=== PATIENT | male | born 1950 | race Caucasian/White ===

== ENCOUNTER 2020-12-20 05:41 | Inpatient (IN) ==
--- NOTE | 2020-11-28 14:35 | PAT Medication Instructions ---
Medication Instructions Date of Service November 28, 2020 Home Medications cholecalciferol (vitamin D3) 25 mcg (1,000 unit) capsule 2,000 mcg PO QAM lisinopril 5 mg tablet 5 mg PO QAM alfuzosin 10 mg PO HS DO NOT take the morning of surgery cholecalciferol (vitamin D3) 25 mcg (1,000 unit) capsule 2,000 mcg PO QAM lisinopril 5 mg tablet 5 mg PO QAM Take evening before surgery alfuzosin 10 mg PO HS Other Notes If you have any questions please call us at [phone] or [phone] or [phone] or [phone]
--- NOTE | 2020-11-29 11:26 | Anesthesiology Consultation ---
Date of Service November 29, 2020 Assessment & Plan (1) Encounter for pre-operative examination: Chart Review Chart Review: Acceptable Risk for Surgery (pending preop Covid testing results ) and Patient seen in Pre Admission Testing Per PAT appt on 11/29/20, pt resides in [facility]. Wears mask, uses good hand hygiene and socially distances. Travels to [facility] for medical appts. No known Covid positive contacts or Covid related symptoms. No known Covid infection in the past 90 days. Preop Covid testing scheduled 12/16/20= will await results. Educated on importance of self quarantining, social distancing and wear ing mask in public both for the patient after Covid testing done. Pt fully vaccinated. Teaching & Discussion Pre-Anesthesia Teaching/Discussion Notes: Instructed NPO after midnight before surgery,except medications with 15 cc of water. Medication instructions provided according to the [facility] guidelines. History Surgery Operation Date: 12/20/20 07:30 Proposed Procedures p Robotic Laparoscopic Assisted Radical Retropubic Prostatectomy Possible Open Possible Pelvic Lymph Node Dissection Possible Suprapubic Tube Placement - Dar Patel MD Height/Weight Height: 5 ft 10 in Weight: 91.9 kg Allergies Allergy/AdvReac Type Severity Reaction Status Date / Time No Known Allergies Allergy Verified 11/28/20 11:53 Medications Home Medications Medication Instructions Recorded Confirmed Last Taken cholecalciferol (vitamin D3) 25 2,000 mcg PO QAM 05/24/20 11/28/20 Unknown mcg (1,000 unit) capsule lisinopril 5 mg tablet 5 mg PO QAM 05/24/20 11/28/20 Unknown alfuzosin 10 mg PO HS 11/28/20 11/28/20 Unknown Past Medical History Medical History Benign localized hyperplasia of prostate with urinary obstruction GERD (gastroesophageal reflux disease) Controlled and stable Gout HX No current issues Hypertension Impotence, organic Prostate cancer (03/25/20) Dx'ed 2019- was under observation until now Exercise / Class Metabolic Activity II 4-5 Yardwork/Stairs/Walk up hill (one flight of stairs - no chest pain or SOB ) Past Family History Family History Mother , 78yo Arthritis Father , 81yo Dementia Brother No problems noted. Brother No problems noted. Brother Retinal disorder Sister No problems noted. Sister No problems noted. Son No problems noted. Daughter No problems noted. Daughter No problems noted. Past Surgical History Surgical History H/O left inguinal hernia repair History of colonoscopy Hx of hemorrhoidectomy Hx of prostate biopsy Past Anesthesia History No Hx of Anesthesia Complications and No Family Hx of Anesthesia Complications History of PONV No Hx of PONV and No Hx of Motion Sickness Social History Smoking Status: Former smoker Smoking cigarettes per day: 1-2 PPD x 30yrs;Quit 1998 Do You Dip or Chew Tobacco: No Smoking End Date: QUIT 20" YRS AGO Hx Alcohol Use: Yes Alcohol type: beer alcohol intake frequency: 0-2 drinks per day (2 beers/day ) Hx Substance Use: No Review of Systems Patient denies chest pain, shortness of breath, dyspnea on exertion, cough, wheezing, palpitations. No hx of seizures, stroke, [place], apnea/snoring. No hx of blood clots or blood transfusions Physical Exam Vital Signs VITALS BP 126/75 P 73 TEMP 98.0 SP02 95% RESP 16 Constitutional no acute distress ENMT Mouth: no TMJ clicking Thyromental Distance: > or= 3.5 Finger Breadths (3.5) Mallampati Class: I Missing molars Neck + short neck; neck extension not limited Respiratory normal respiratory effort; no respiratory distress Auscultation: lungs clear to auscultation bilaterally; no wheezes Cardiovascular Rate/Rhythm: regular rate and regular rhythm Heart Sounds: no murmur Vessels: no carotid bruit Musculoskeletal Spine: no pain with cervical ROM Extremities: extremities normal to inspection Psychiatric Orientation: alert Lab Results Anesthesia Preop Results Results Anesthesia Widget: WBC 4.99 K/uL (4.8-10.8) 11/29/20 Hgb 15.0 g/dL (14.0-18.0) 11/29/20 Hct 43.3 % (42-52) 11/29/20 Plt 188 K/uL (130-400) 11/29/20 Na 138 mmol/L (136-145) 11/29/20 K 4.3 mmol/L (3.5-5.1) 11/29/20 Cl 106 mmol/L (98-107) 11/29/20 CO2 25 mmol/L (21-32) 11/29/20 BUN 19 mg/dl (7-18) H 11/29/20 Creat 1.29 mg/dl (0.6-1.4) 11/29/20 Glucose Level 100 mg/dl (70-99) H 11/29/20 Urine Color Yellow 11/29/20 Urine Appearance Clear (Clear) 11/29/20 Urine pH 5.0 (4.5-7.5) 11/29/20 Urine Specific [place] 1.011 (1.000-1.030) 11/29/20 Urine Protein Negative (Negative) 11/29/20 Urine Glucose (UA) Negative (Negative) 11/29/20 Urine Ketones Negative (Negative) 11/29/20 Urine Blood Negative (Negative) 11/29/20 Urine Nitrite Negative (Negative) 11/29/20 Urine Bilirubin Negative (Negative) 11/29/20 Urine Urobilinogen Negative (Negative) 11/29/20 Urine Leukocyte Esterase Negative (Negative) 11/29/20 Blood Type O Negative 11/29/20 Antibody Screen NEGATIVE 11/29/20 Testing Electrocardiogram Date: 11/29/20 Findings: + NSR @ (72bpm) Incomplete RBBB. Chest X-Ray Date: 11/29/20 Findings: + NAD
[2020-12-20] MEDS ORDERED: HEPARIN SOD 5,000 UNIT/0.5 ML VIAL IV SCH (06:00)
[2020-12-20] MEDS ORDERED: HEPARIN SOD 5,000 UNIT/0.5 ML VIAL SQ SCH (06:00)
[2020-12-20] MEDS ORDERED: LR 15ML/HR IV SCH (06:00)
[2020-12-20] MEDS ORDERED: MIDAZOLAM HCL 1 MG/ML 2ML VIAL ONE (06:58)
[2020-12-20] MEDS ORDERED: fentaNYL citrate 100 MCG/2 ML VIAL ONE (06:58)
[2020-12-20] MEDS ORDERED: fentaNYL citrate 100 MCG/2 ML VIAL IV PRN (07:06)
[2020-12-20] MEDS ORDERED: ePHEDrine sulfate 50 MG/ML AMP IV PRN (07:06)
[2020-12-20] MEDS ORDERED: HYDROmorphone INJ 1 MG/ML SYRINGE IV PRN (07:06)
[2020-12-20] MEDS ORDERED: ATROPINE SULFATE 0.1 MG/ML 10ML SYR IV PRN (07:06)
[2020-12-20] MEDS ORDERED: PHENYLEPHRINE 100MCG/ML 5ML SYR IV PRN (07:06)
[2020-12-20] MEDS ORDERED: ONDANSETRON INJ 2 MG/ML 2 ML VIAL IV PRN ×2 (07:06→11:56)
[2020-12-20] MEDS ORDERED: MEPERIDINE HCL 25 MG/ML CARP/VIAL IV PRN (07:06)
[2020-12-20] MEDS ORDERED: LABETALOL HCL IV 5 MG/ML 20ML IV PRN (07:06)
--- NOTE | 2020-12-20 07:20 | History & Physical Bridge Note ---
Date of Service December 20, 2020 History & Physical Bridge Note I have examined the patient, reviewed the History & Physical and in the interval since the performance of the History & Physical I have noted the following changes of clinical significance: no changes noted
[2020-12-20] MEDS ORDERED: BUPIVACAINE 0.5 % 5 MG/1 ML MPF 30ML VIAL ONE (07:25)
[2020-12-20] MEDS ORDERED: BELLADONNA/OPIUM SUPP 60 MG SUPP PR ONE (07:49)
[2020-12-20] MEDS ORDERED: HYDROmorphone INJ 2 MG/ML SYR/VIAL ONE (08:11)
[2020-12-20] MEDS ORDERED: ROCURONIUM BROMIDE 10 MG/ML 5 ML VIAL IV ONE ×4 (08:16→09:14)
[2020-12-20] MEDS ORDERED: LIDOCAINE 2% 2 ML VIAL/AMP(20MG/ML) INFIL ONE (08:16)
[2020-12-20] MEDS ORDERED: GLYCOPYRROLATE 0.2 MG/ML VIAL ONE (08:16)
[2020-12-20] MEDS ORDERED: ePHEDrine sulfate 50 MG/ML SYR ONE (08:16)
[2020-12-20] MEDS ORDERED: DEXAMETHASONE SOD INJ 4 MG/ML VIAL ONE (08:16)
[2020-12-20] MEDS ORDERED: PROPOFOL IV EMULSION 10 MG/ML 20 ML VIAL IV ONE (08:16)
[2020-12-20] MEDS ORDERED: ONDANSETRON INJ 2 MG/ML 2 ML VIAL ONE (08:16)
[2020-12-20] MEDS ORDERED: LARYING-O-JET KIT (LTA) ONE (08:16)
[2020-12-20] MEDS ORDERED: NEOSTIGMINE METHYLSULFATE 1 MG/ML 10ML VIAL ONE (08:16)
[2020-12-20] MEDS ORDERED: PHENYLEPHRINE 100MCG/ML 5ML SYR ONE (08:16)
[2020-12-20] MEDS ORDERED: SURGICEL ABSORB HEMOSTAT 2IN X 14IN TOP ONE (08:25)
[2020-12-20] MEDS ORDERED: FLOSEAL HEMOSTATIC MATRIX 10ML TOP ONE (08:25)
--- NOTE | 2020-12-20 10:55 | Operative Report ---
[facility] Post Operative Report Pre & Post Diagnosis Operation Date: 12/20/20 07:30 Pre-Op Diagnosis: Prostate Cancer Post-Op Diagnosis: Prostate Cancer I identified the patient and participated in the time-out.: Yes Procedure Operation Date: 12/20/20 07:30 Actual Procedures p Robotic Laparoscopic Assisted Radical Retropubic Prostatectomy(Not Applicable) - Dar Patel MD Surgeon Kev Patel MD Hand Folder Alicia Erwin Estimated Blood Loss 100 Findings Consistent with Post-Op Diagnosis Specimens 1. Periprostatic fat 2. Prostate and seminal vesicles Description of Procedure The patient was identified in the preoperative holding area, appropriate informed consents were reviewed and completed, and he was transported to the operating suite. Subcutaneous heparin was administered in the pre-operative holding area. Upon arrival in the operating suite, he received appropriate antibiotics and general anesthesia. He was positioned in dorsal lithotomy, a B&O suppository was inserted after digital rectal exam, and he was prepped and draped in standard fashion. A Briones catheter was inserted in the sterile field. A Veress needle was passed per umbilicus with uniform insufflation of the abdomen to 15mmHg. He was placed in steep Trendelenburg position. A periumbilical incision was then made to ac commodate a 12mm Visiport with 10mm 0degree laparoscope. Inspection of the abdomen was carried out, and there was no evidence of traumatic entry or injury secondary to the Veress needle. After confirming a clear anterior abdominal wall, ports were subsequently placed in standard robotic prostatectomy fashion without incident. To begin the robotic portion of the case, the left lateral aspect of the sigmoid was mobilized off of the left pelvic side wall to allow the pouch of Oscar to be appropriately visualized. He has had a prior left inguinal hernia repair, there was some scarring, but required minimal lysis of adhesions in this area. I then made an incision in the pouch of Oscar, overlying the seminal vesicles. Both SVs as well as the ampullae of the vasa were entirely dissected, with the vasa transected 3cm from the prostate. The medial umbilical ligaments were then controlled with bipolar electrocautery just inferior to the umbilicus. Following cauterization, they were divided utilizing monopolar cautery. A peritoneal incision was carried from this location to the medial aspect of the internal inguinal rings bilaterally with care to avoid opening through the ring. This incision was concluded when the vas deferens was reached. Dissection of the bladder and prostate off of the posterior aspect of the pubic arch was completed allowing full visualization of the prostate. The fat overlying the prostate was removed en bloc and passed off the table as a specimen labeled "periprostatic fat". The endopelvic fascia was cleared during this portion of the procedure, and subsequently opened - first on the right and then the left. The incision through the endopelvic fascia began near the prostate-bladder junction and was carried to the apex with extreme care to preserve all lateral levator musculature as well as the periurethral musculature and sphincter complex. I additionally preserved the puboprostatic ligaments. I then controlled the DVC with a 3-0 V-lock suture in overlapping/figure of 8 fashion. My attention then returned to the prostate, with identification of the bladder neck aided by gentle traction on the Briones catheter and lateral to medial pressure at the presumed level of the bladder neck with the robotic instruments. An anterior cystotomy was made, the Briones balloon deflated and the catheter guided through the incision to allow anterior retraction. I attempted to preserve maximal bladder neck musculature as I circumferentially dissected around the bladder neck. After incision through the posterior aspect of the mucosa, the dissection was carried through detrusor muscle until the bilateral ampullae of the vasa were identified. The previously dissected vasa and SVs were brought through the incision and used to elevated the prostate anteriorly. A posterior plane behind the prostate was then developed - splitting Denonvilliers's fascia. This dissection was carried as far as possible towards the apex as well as far as possible laterally. An incision in the lateral prostatic fascia was then made bilaterally to facilitate control of the vascular pedicles and preservation of the nerve bundles. Vasculature running along the posterior/lateral aspect of the prostate was preserved as well as the tissue containing the nerves. The pedicles were then controlled with a series of Weck clips. The apical attachments of the prostate were remaining at that stage. The DVC was divided after control with bipolar cautery over the prostate. Continuous inspection from anterior and lateral views allowed me to closely follow the apical contour of the prostate and maximally preserve urethral length and tissue. The prostate was entirely freed at that point, and collected in an EndoCatch bag before being moved out of the field of vision. Hemostasis was confirmed and anastomosis of the bladder and urethra was completed utilizing a double armed V- Lock stitch. A new Briones catheter was inserted and the anastomosis tested with irrigation. There was no evidence of leak. The robot was undocked, the specimen extracted through expansion of the melvi- umbilical camera port. The fascia was closed with a series of 0-ethibond figure of 8 stitches. The right lead assistant manager port was closed in two layers - with a figure of 8 0-Vicryl to reapproximate the fascia followed by 4-0 Monocryl to close the skin. Monocryl was used to close all other skin incisions. All wounds were dressed with Dermabond. The case was concluded and the patient taken to the PACU in stable condition. Alicia Erwin assisted from incision to closure. I attest to the content of the Intraoperative Record and any orders documented therein. Any exceptions are noted below.
[2020-12-20 11:27] LABS: Eosinophils # (auto) 0.03 K/uL (0-0.5); Eosinophils % (auto) 0.4 %; Hematocrit (blood only) 46.4 % (42-52); Hemoglobin 15.9 g/dL (14.0-18.0); Immature Granulocytes # (auto) 0.01 K/uL (0.00-0.02); Immature Granulocytes % (auto) 0.1 %; Lymphocytes # (auto) 0.99 K/uL (1.2-3.4); Lymphocytes % (auto) 12.2 %; Mean Corpuscular Hemoglobin 33.4 pg (25-34); Mean Corpuscular Volume 97.5 fL (80-100); Mean Platelet Volume 9.7 fL (7.4-10.4); Monocytes # (auto) 0.09 K/uL (0.11-0.59); Monocytes % (auto) 1.1 %; Neutrophils # (auto) 6.99 K/uL (1.4-6.5); Neutrophils % (auto) 86.2 %; Platelet Count 192 K/uL (130-400); RDW Standard Deviation 46.5 fL (36.4-46.3); Red Blood Count 4.76 M/uL (4.7-6.1); White Blood Count 8.11 K/uL (4.8-10.8)
--- NOTE | 2020-12-20 11:30 | Anesthesiology Progress Note ---
Date of Service December 20, 2020 Anesthesia Post Procedure Vital Signs Vital Signs: Temp Pulse Pulse Resp BP BP Pulse Ox 12/20/20 11:20 36.6 C 83 14 165/92 H 95 12/20/20 11:10 80 12 159/92 H 95 12/20/20 11:00 92 H 13 173/97 H 96 12/20/20 10:50 83 13 165/94 H 95 12/20/20 10:41 36.6 C 95 H 12 165/94 H 95 12/20/20 06:17 36.8 C 90 20 151/95 H 95 Transfer of Care Handoff Completed per policy Notes Mental Status: alert / awake / arousable Patient Amnestic to Procedure: Yes Nausea / Vomiting: adequately controlled Pain: adequately controlled Airway Patency, RR, SpO2: stable & adequate BP & HR: stable & adequate Hydration State: stable & adequate Anesthetic Complications: no major complications apparent and Pt Satisfied with anesthetic care
[2020-12-20 11:36] LABS: Mean Corpuscular Hgb Conc 34.3 g/dL (32-36)
[2020-12-20 11:42] LABS: BUN Creatinine Ratio 13.5 (10-20); Calcium 9.3 mg/dl (8.5-10.1); Creatinine Clr Calc Pharmacy 48.3 ml/min; Est GFR (African American) 55.2 ml/min; Est GFR (Non-African American) 47.7 ml/min; Potassium 4.3 mmol/L (3.5-5.1)
[2020-12-20] MEDS ORDERED: MoRPHine SULFATE 4 MG/ML 1 ML CARP\\VIAL IV PRN (11:56)
[2020-12-20] MEDS ORDERED: oxyCODONE HCL IR 5 MG TAB (IMMEDIATE RELEASE) PO PRN ×2 (11:56)
[2020-12-20] MEDS ORDERED: MoRPHine SULFATE 2 MG/ML CARP IV PRN (11:56)
[2020-12-20] MEDS: LACTATED RINGER'S 1,000 ML IV SCH ×2 (13:04→22:34)
[2020-12-20] MEDS: ceFAZolin 2000MG 2,000 MG/15 ML SYR IV SCH ×2 (15:50→22:34)
[2020-12-20] MEDS: HEPARIN SOD 5,000 UNIT/0.5 ML VIAL SQ SCH (20:22)
[2020-12-20] MEDS: ACETAMINOPHEN 325 MG TAB PO PRN (20:33)
[2020-12-21] MEDS: ACETAMINOPHEN 325 MG TAB PO PRN (04:22)
[2020-12-21 06:58] LABS: Hematocrit (blood only) 43.9 % (42-52); Hemoglobin 14.9 g/dL (14.0-18.0); Immature Granulocytes # (auto) 0.01 K/uL (0.00-0.02); Immature Granulocytes % (auto) 0.1 %; Lymphocytes # (auto) 1.47 K/uL (1.2-3.4); Lymphocytes % (auto) 16.8 %; Mean Corpuscular Hemoglobin 33.5 pg (25-34); Mean Corpuscular Hgb Conc 33.9 g/dL (32-36); Mean Corpuscular Volume 98.7 fL (80-100); Mean Platelet Volume 9.8 fL (7.4-10.4); Monocytes # (auto) 0.82 K/uL (0.11-0.59); Monocytes % (auto) 9.4 %; Neutrophils # (auto) 6.44 K/uL (1.4-6.5); Neutrophils % (auto) 73.7 %; Platelet Count 202 K/uL (130-400); RDW Standard Deviation 46.9 fL (36.4-46.3); Red Blood Count 4.45 M/uL (4.7-6.1); White Blood Count 8.74 K/uL (4.8-10.8)
[2020-12-21 07:25] LABS: BUN Creatinine Ratio 10.8 (10-20); Calcium 8.9 mg/dl (8.5-10.1); Creatinine Clr Calc Pharmacy 53.4 ml/min; Est GFR (African American) 62.3 ml/min; Est GFR (Non-African American) 53.8 ml/min; Potassium 4.1 mmol/L (3.5-5.1)
--- NOTE | 2020-12-21 08:00 | Urology Progress Note ---
Date of Service December 21, 2020 Assessment & Plan (1) Prostate cancer: Postop day #1 status post robotic prostatectomy Recovery appears to very much be on pace Continue ambulation Advance diet as tolerated Hep-Lock IV fluid Plan for discharge home later today Admission and Anticipated Discharge Date Admission Date: December 20, 2020 Subjective No issues overnight Denies any significant pain Was out of bed and ambulatory within the room but not the hallway No nausea or vomiting Tolerated clears Urine cleared up appropriately Good urine output overnight Physical Exam Physical Exam: Incisions appropriate Urine clear Results & Data ([facility]) Vital Signs (Past 12 Hours) Vital Signs Temp Pulse Pulse Resp BP BP Pulse Ox 12/21/20 07:26 37 C 73 20 134/73 95 12/21/20 03:00 36.9 C 81 18 148/77 H 94 12/20/20 23:12 37.1 C 87 18 132/74 94 PG Care Time/CCT Total # of Minutes Spent Total Time Spent with Patient: Total time spent is greater than 50% in coordination of care (as documented) at patient's floor/unit and/or counseling patient: Coding Level of Care Code 21952 Subseq Hosp Care Lvl 2 Diagnoses Prostate cancer C61
[2020-12-21] MEDS: HEPARIN SOD 5,000 UNIT/0.5 ML VIAL SQ SCH (08:41)
[2020-12-21] MEDS ORDERED: lisinopril 5 MG TAB PO SCH (09:00)
[2020-12-21] MEDS ORDERED: CHOLECALCIFEROL 1,000 UNITS 25 MCG TAB PO SCH (09:00)
--- NOTE | 2020-12-21 09:00 | Discharge Summary ---
Date of Service December 21, 2020 Admission HPI Per Admitting Provider See H&P Admission Exam Per Admitting Provider See H&P Principal Diagnosis Prostate Cancer Discharge Exam Constitutional well developed and well nourished; no acute distress and not ill appearing Respiratory normal respiratory effort and able to speak in complete sentences; no respiratory distress and no audible wheezes Gastrointestinal (Abdomen) Inspection/Auscultation: abdomen normal to inspection; abdomen not distended Percussion/Palpation: abdomen soft; no guarding Incisions appropriate. Psychiatric Orientation: alert, oriented x 3 and cooperative Affect: euthymic affect Genitourinary no CVA tenderness Mack catheter intact draining clear yellow urine. Discharge Data Allergies Allergy/AdvReac Type Severity Reaction Status Date / Time No Known Allergies Allergy Verified 12/20/20 05:48 Procedures Performed Operation Date: 12/20/20 07:30 Actual Procedures p Robotic Laparoscopic Assisted Radical Retropubic Prostatectomy(Not Applicable) - Dar Patel MD Hospital Course (1) Prostate cancer: Patient admitted status post robotic laparoscopic-assisted radical retropubic prostatectomy on 12/20/[address] Patel. No complications post procedure. He was seen POD#1, feeling well, clinically progressing as expected. Vital signs and post-op labs appropriate and as expected. Elevated creatinine post procedure expected postoperatively secondary to urologic surgical intervention, returned to normal POD#1. Pain controlled, tolerating advanced diet, ambulating without dizziness. Discharged home in stable condition POD # 1, home with mack catheter. Total Time Total Time Spent Total Time Spent (In Minutes): 10 Discharge Plan Discharge Items Patient Disposition: Home - Self-Care Reason For Visit: Prostate Cancer Discharge Diagnosis: Prostate Cancer Condition on Discharge: Good Activity: Per Instructions section Lifting: No more than 25 pounds Bathing Comment: No tub baths, okay to shower tomorrow Sexual Activity: Wait until after follow-up appointment Exercise/Sports: Wait until after follow-up appointment Driving/Machine Use: Do not drive while taking narcotic pain medication Non-emergency contact: Surgeon and Urologist Call non-emergency contact if: your pain is not controlled, your pain is concerning for you, your temperature is above 101, your wound has increased redness, your wound has increased drainage and your wound pain has increased Follow-up/Referrals: Dar Patel MD [Physician] - 01/04/21 2:45 pm Erich Gautam M.D. [Primary Care Provider] - [facility],Nurse [FAKE FOR SCHEDULES] - 12/26/20 10:00 am Diet: Regular Addtl Attending Provider Instructions: Please take all medications as prescribed and keep all follow-ups as scheduled. Please call our office at [phone] with any questions, concerns or need to reschedule appointments for any reason. We are happy to assist you We have sent an antibiotic to your pharmacy of choice. Please begin antibiotic as prescribed the day BEFORE your scheduled voiding trial at [facility]. Please continue antibiotic every 12 hours through the day AFTER your voiding trial. Activity: We recommend having someone with you for the first few days after surgery to help care for you. For the first 2 weeks after surgery, we would like you to get up and walk around your house. However, we recommend limit physical activity that would increase your heart rate. This will allow your body to rest and heal. Take naps if you feel tired. Don't lift anything heavier than 10 pounds, mow the law or ride a bicycle until your follow-up appointment. Please avoid long car rides. Home Care: Unless directed otherwise, drink 6 to 8 glasses of water a day (enough to keep your urine light colored). This will also help keep a healthy flow of urine. We recommend using a stool softener for the first two weeks to avoid constipation. Mack Catheter or Suprapubic Catheter care: Keep the catheter well secured with either a leg back or leg strap with large bag. Empty your bag when it's about half full. You may notice some blood in the bag. This is normal after surgery and while the catheter is in place. Use mild soap (such as Dove or Dial) and water to wash the catheter and the head of your penis daily, or more frequently if needed. Return to your normal diet, we encourage good protein intake to promote healing. You may shower as normal. Please avoid tub baths or soaking until catheter removed and incisions well healed. Wearing sweat pants while you have the catheter is recommended, they will be more comfortable. Follow-up Your follow up appointments for having your catheter removed, and follow up with your physician should already be scheduled. If you have any questions regarding this, please contact our office. Your final pathology report will be discussed at your physician follow-up appointment. Call [facility] at [phone] right away if you have any of the following: Chest pain or trouble breathing (call 911 or go to the hospital) Fever of 101F or higher, uncontrolled vomiting Heavy bleeding, clots, or bright red blood from the catheter Catheter that falls out or stops draining Foul-smelling discharge from your catheter Redness, swelling, warmth, or increased pain at your incision site Drainage, pus, or bleeding from your incision Pending Studies at Discharge: Yes Studies:: pathology Stand-Alone Forms: [facility], Smoking Cessation Medications and DC Order Prescriptions: New ciprofloxacin HCl 500 mg tablet 500 mg PO BID 3 Days Qty: 6 RF: 0 docusate sodium [Colace] 100 mg capsule 100 mg PO BID Qty: 60 RF: 0 oxycodone-acetaminophen [Percocet] 5-325 mg tablet 1 tab PO TID PRN (Reason: pain) Qty: 14 RF: 0 Continued cholecalciferol (vitamin D3) 25 mcg (1,000 unit) capsule 2,000 mcg PO QAM RF: 0 lisinopril 5 mg tablet 5 mg PO QAM RF: 0 Discontinued alfuzosin 10 mg tablet extended release 24 hr 10 mg PO HS RF: 0 Discharge Orders: Discharge Order (Routine); Ordered 12/21/20 Ordered By: Meghan Pleitez/Other Patient Handouts: Emptying and Cleaning Your ..., Indwelling Urinary Catheter Dc, Discharge Instructions Caring for ... Admission Data Admit Date/Time: 12/20/20 10:43 Attending Provider: Dar Patel Admit Provider: Dar Patel Primary Care Provider: Erich Gautam Other Interventions: Discharge Summary Assessment (RN) Last Done: 12/21/20 13:49 Coding Level of Care Code D/C Day Management <30 mins Diagnoses Prostate cancer C61
== END 2020-12-21 14:49 | disposition home or self-care (01) | DRG 708 ==
LOC: ASU 05:41 → 3N 10:43
DX: C61 Malignant neoplasm of prostate